=== PATIENT | male | born 1960 | race Two or more races ===

== ENCOUNTER → 2023-10-28 | Outpatient (CLI) | payer MEDICAID ==
[2023-10-28 07:39] LABS: Urine Bacteria None Seen /hpf (None Seen)
[2023-10-28 07:57] LABS: Basophils # (auto) 0.1 10 ^3/uL (0-0.2); Basophils % (auto) 0.6 % (0.0-2.0); Eosinophils # (auto) 0.3 10 ^3/uL (0-0.8); Eosinophils % (auto) 3.5 % (0.0-7.0); Hematocrit 48.5 % (41.0-53.0); Hemoglobin 16.7 g/dL (13.5-17.5); Lymphocytes # (auto) 1.2 10 ^3/uL (0.4-5.4); Lymphocytes % (auto) 15.1 % (10.0-50.0); Mean Corpuscular Hemoglobin 32.4 pg (28.0-32.0); Mean Corpuscular Hgb Conc. 34.4 g/dL (32.0-36.0); Mean Corpuscular Volume 94.1 fL (80.0-100.0); Monocytes # (auto) 0.6 10 ^3/uL (0-1.3); Monocytes % (auto) 7.3 % (0.0-12.0); Neutrophils # (auto) 5.9 10 ^3/uL (1.6-8.6); Neutrophils % (auto) 73.5 % (37.0-80.0); Red Blood Cells 5.16 10^6/uL (4.5-5.90); Red Cell Distribution Width 13.7 % (11.8-14.3); White Blood Cell 8.1 10^3/uL (4.4-10.8)
[2023-10-28 08:16] LABS: Urine Blood 1+ /uL (Negative); Urine Clarity Clear (Clear); Urine Color Yellow (Yellow); Urine Mucus FEW (None Seen); Urine Protein, UAD TRACE (Negative); Urine Specific Gravity 1.022 (1.001-1.035); Urine Urobilinogen Normal (Negative); Urine WBC 1 /hpf (0 - 3); Urine pH 5.5 (5.0-9.0)
[2023-10-28 08:21] LABS: Alanine Aminotransferase 29 U/L (7-40); Albumin 4.4 g/dL (3.2-4.8); Alkaline Phosphatase 78 U/L (46-116); Anion Gap 9 (5-15); Aspartate Aminotransferase 27 U/L (13-40); BUN/Creatinine Ratio 13.3 (10.0-20.0); Bilirubin, Total 2.6 mg/dL (0.2-1.0); Blood Urea Nitrogen 11 mg/dL (9-23); Calcium 9.5 mg/dL (8.7-10.4); Carbon Dioxide 24 mmol/L (20-30); Chloride 105 mmol/L (98-107); Cholesterol 123 mg/dL (< 200); Glucose 107 mg/dL (74-106); HDL Cholesterol 65 mg/dL (40-59); LDL Cholesterol 51 mg/dL (< 100); Potassium 3.7 mmol/L (3.5-5.1); Sodium 138 mmol/L (136-145); Total Protein 6.9 g/dL (5.7-8.2); Triglycerides 47 mg/dL (< 150)
[2023-10-29 07:07] LABS: RPR Non Reactive (Non Reactive)
[2023-10-29 08:06] LABS: PSA Free 0.35 ng/mL; Prostate Specific Antigen 2.1 ng/mL (0.0-4.0)
[2023-10-29 09:23] LABS: Hepatitis B Surface Antigen Negative (Negative)
[2023-10-29 09:43] LABS: Hepatitis A Ab IgM Negative
[2023-10-29 09:44] LABS: Hepatitis B Core IgM Negative
[2023-10-29 09:45] LABS: Hepatitis C Antibody Negative (Negative)
[2023-10-29 13:08] LABS: Chlamydia Trachomatis, NAA Negative (Negative); Neisseria gonorrhoeae, NAA Negative (Negative)
== END | disposition home or self-care (01) ==
LOC: LAB 07:20
DX: Z12.11 Encounter for screening for malignant neoplasm of colon (principal); Z12.5 Encounter for screening for malignant neoplasm of prostate; Z11.3 Encounter for screening for infections with a predominantly sexual mode of transmission; Z00.01 Encounter for general adult medical examination with abnormal findings
CPT/HCPCS: 36415; 80053; 80061; 80074; 81001; 82274; 82306; 83036; 84154; 84443; 85025; 86592

== ENCOUNTER → 2024-02-25 | Outpatient (CLI) | payer MEDICAID ==
[2024-02-25 07:36] LABS: Urine Bacteria None Seen /hpf (None Seen)
[2024-02-25 08:56] LABS: Urine Blood Negative /uL (Negative); Urine Clarity Clear (Clear); Urine Color Light-Yellow (Yellow); Urine Protein, UAD Negative (Negative); Urine Urobilinogen Normal (Negative); Urine WBC 1 /hpf (0 - 3); Urine pH 5.5 (5.0-9.0)
[2024-02-25 09:06] LABS: INR 1.04 (0.9-1.15); Partial Thromboplastin Time 28.6 SEC (24.5-34.5)
[2024-02-25 09:07] LABS: Basophils # (auto) 0 10 ^3/uL (0-0.2); Basophils % (auto) 0.6 % (0.0-2.0); Eosinophils # (auto) 0.4 10 ^3/uL (0-0.8); Eosinophils % (auto) 5.9 % (0.0-7.0); Hematocrit 45.9 % (41.0-53.0); Hemoglobin 15.4 g/dL (13.5-17.5); Lymphocytes # (auto) 1.3 10 ^3/uL (0.4-5.4); Lymphocytes % (auto) 19.5 % (10.0-50.0); Mean Corpuscular Hemoglobin 31.1 pg (28.0-32.0); Mean Corpuscular Hgb Conc. 33.5 g/dL (32.0-36.0); Monocytes # (auto) 0.4 10 ^3/uL (0-1.3); Monocytes % (auto) 6.8 % (0.0-12.0); Neutrophils # (auto) 4.5 10 ^3/uL (1.6-8.6); Neutrophils % (auto) 67.2 % (37.0-80.0); Nucleated Red Blood Cells % 0.1 %; Platelet Count (auto) 90 10^3/uL (140-450); Red Blood Cells 4.94 10^6/uL (4.5-5.90); Red Cell Distribution Width 13.6 % (11.8-14.3); White Blood Cell 6.7 10^3/uL (4.4-10.8)
[2024-02-25 09:21] LABS: Alanine Aminotransferase 14 U/L (7-40); Alkaline Phosphatase 88 U/L (46-116); Anion Gap 6 (5-15); BUN/Creatinine Ratio 13.3 (10.0-20.0); Blood Urea Nitrogen 11 mg/dL (9-23); Carbon Dioxide 29 mmol/L (20-31); Chloride 108 mmol/L (98-107); Glucose 103 mg/dL (74-106); LDL Cholesterol 65 mg/dL (< 100); Potassium 4.4 mmol/L (3.5-5.1); Sodium 143 mmol/L (136-145); Triglycerides 48 mg/dL (< 150)
[2024-02-25 09:22] LABS: Albumin 4.3 g/dL (3.2-4.8); Aspartate Aminotransferase 12 U/L (13-40); Cholesterol 119 mg/dL (< 200)
[2024-02-25 09:23] LABS: Bilirubin, Total 0.9 mg/dL (0.2-1.0); HDL Cholesterol 49 mg/dL (40-59)
== END | disposition home or self-care (01) ==
LOC: LAB 07:12
DX: I10 Essential (primary) hypertension (principal); F10.11 Alcohol abuse, in remission; D69.9 Hemorrhagic condition, unspecified
CPT/HCPCS: 36415; 80053; 80061; 81001; 82306; 82728; 82977; 83036; 84443; 85025; 85610; 85730

== ENCOUNTER → 2024-03-29 | Outpatient (CLI) | payer MEDICAID ==
[2024-03-29 09:10] LABS: Basophils # (auto) 0.1 10 ^3/uL (0-0.2); Basophils % (auto) 1.2 % (0.0-2.0); Eosinophils # (auto) 0.3 10 ^3/uL (0-0.8); Eosinophils % (auto) 4.6 % (0.0-7.0); Hematocrit 44.7 % (41.0-53.0); Lymphocytes # (auto) 1.1 10 ^3/uL (0.4-5.4); Mean Corpuscular Hemoglobin 30.9 pg (28.0-32.0); Mean Corpuscular Hgb Conc. 33.5 g/dL (32.0-36.0); Mean Corpuscular Volume 92.2 fL (80.0-100.0); Monocytes # (auto) 0.4 10 ^3/uL (0-1.3); Monocytes % (auto) 6.4 % (0.0-12.0); Neutrophils # (auto) 4.7 10 ^3/uL (1.6-8.6); Neutrophils % (auto) 70.8 % (37.0-80.0); Nucleated Red Blood Cells % 0.1 %; Platelet Count (auto) 79 10^3/uL (140-450); Red Blood Cells 4.84 10^6/uL (4.5-5.90); Red Cell Distribution Width 13.5 % (11.8-14.3); White Blood Cell 6.6 10^3/uL (4.4-10.8)
[2024-03-29 10:28] LABS: Erythrocyte Sedimentation Rate 4 mm/hr (0-20)
== END | disposition home or self-care (01) ==
LOC: LAB 08:36
DX: I10 Essential (primary) hypertension (principal)
CPT/HCPCS: 36415; 82607; 85025; 85652; 86038; 86141

== ENCOUNTER → 2024-06-06 | Outpatient (CLI) | payer MEDICAID ==
--- NOTE | 2024-06-07 16:25 | DVHSR ---
APPROVED REPORT EXAM: Two-dimensional and M-mode echocardiogram with Doppler and color Doppler. DIMENSIONS LVDd4.3 (3.8-5.7cm)LA (2D)3.8 (1.9-4.0cm)Aortic Root3.2 (2.0-3.7cm) LVDs3.1 (2.5-4.0cm)LA (MM) (1.9-4.0cm)Aortic Cusp Exc1.8 (1.5-2.0cm) EF (%) 56.4 (55-70%)Rt. Atrium3.3 (1.9-4.0cm)Asc. Aorta4.0 cm IVSd1.2 (0.7-1.1cm)RV (D)1.9 (1.8-2.4cm) PWd1.2 (0.7-1.1cm) Mitral Valve MitralMitral Stenosis E wave0.57m/sMV Mean GR.mmHg A wave1.00m/sMV Peak GR.18mmHg E/A ratio0.62D MVAcm2 DECEL [id number] 1/2 Timems Aortic Valve Aortic ValveAortic Stenosis V10.89m/Carol Mean GR.5mmHg V21.60m/Carol Peak GR.10mmHg AI P 1/2 [id number] Pulmonic Valve V20.52m/s Tricuspid Valve TR Velocity2.65m/s [id number] LEFT VENTRICLE The Ejection Fraction is >55%. ATRIA The left atrial size is normal. The right atrium size is normal. MITRAL VALVE The mitral valve is normal in structure and function. Mitral regurgitation is trace to mild. PULMONIC VALVE The pulmonic valve is not well visualized. TRICUSPID VALVE The tricuspid valve is grossly normal. There is mild tricuspid regurgitation. AORTIC VALVE The aortic valve opens well. There is mild aortic regurgitation. GREAT VESSELS The aortic root is normal size. PERICARDIAL EFFUSION There is no pericardial effusion. Other Information Technically limited study due to body habitus. Conclusion MILD AI MILD TR MILD MR EF 55% LVH
== END | disposition home or self-care (01) ==
LOC: Rad HDHVI 07:55
PROVIDERS: ATTEND Internal Medicine Cardiovascular Disease
DX: I08.3 Combined rheumatic disorders of mitral, aortic and tricuspid valves (principal); I71.21 Aneurysm of the ascending aorta, without rupture
CPT/HCPCS: 93306

== ENCOUNTER → 2024-06-08 | Outpatient (CLI) | payer MEDICAID ==
[~2024-06-08] VITALS: Ht 162.6 cm; Wt 64.0 kg
--- NOTE | 2024-06-17 14:39 | DVHSR ---
APPROVED REPORT Exam: Nuclear Stress Test Indication: Screening for CAD Ht: 5 ft 4 in Wt: 141 lbs BSA: 1.69 m2 HR: 67 bpm BP: 117/79 mmHg BMI: 24.20 Rhythm: NSR Medical History Medical History: HTN, Hypercholesterolemia, Smoking Medications: Atorvastatin, Losartan, Vit B12 Allergies: No known drug allergies Stress Test Details Stress Test: Exercise stress testing was performed using a Torsten protocol. HR Resting HR: 67 bpmMax Heart Rate (APMHR): 154.879997 bpm Max HR Achieved: 136 bpmTarget HR (85% APMHR): 130.785253 bpm % of APMHR: 88.31 Recovery HR: 82 bpm HR response to stress: Normal HR response to stress BP Resting BP: 117/79 mmHg Max BP: 153/82 mmHg Recovery BP: 140/85 mmHg BP response to stress: Normal blood pressure response to stress. ECG Resting ECG: Sinus Rhythm Stress ECG: Sinus Tachycardia Arrhythmia: PVCs Recovery ECG: Sinus Rhythm Clinical Reason for Termination: Target HR achieved Stress Symptoms: None Exercise duration: 8 min 15 sec Exercise capacity: 10.1 METs Stress ECG Conclusion ECG RESPONSE NON ISCHEMIC CARDIOLITE IMAGES NO PERFUSION ABNL LESS THAN 10% LIKELIHOOD FOR STRESS INDUCED ISCHEMIA EF >55% NM EXAM: Myocardial Perfusion REST/STRESS Imaging Protocol: Rest Tc-99m/Stress Tc-99m 1 day Resting Data Rest SPECT myocardial perfusion imaging was performed in supine position 30 minutes following the int ravenous injection of 10.91 mCi of Tc-99m Sestamibi. Time of rest injection: 09 Time of rest imagin Administration Route: IV Administration Site: Left AC Exercise Stress At peak stress, the patient was injected intravenously with 32 mCi of Tc-99m Sestamibi. Time of stress injection: 1017 Time of stress imagin Administration Route: IV Administration Site: Left AC Heart Rate at time of stress injection: 134 bpm. Patient continued to exercise for 1 minute(s). Gated Stress SPECT was performed 15 minutes after stress injection. The images were gated to evaluate regional wall motion and calculate left ventricular ejection fracti on. Comments Cardiolite injection at 7 minutes, 13 seconds into test. Study Data Post stress, the left ventricular ejection was 57%.. Nuclear Conclusion ECG RESPONSE NON ISCHEMIC CARDIOLITE IMAGES NO PERFUSION ABNL LESS THAN 10% LIKELIHOOD FOR STRESS INDUCED ISCHEMIA EF >55%
== END | disposition home or self-care (01) ==
LOC: Rad HDHVI 08:54
PROVIDERS: ATTEND Internal Medicine Cardiovascular Disease
DX: I49.3 Ventricular premature depolarization (principal); I10 Essential (primary) hypertension; E78.00 Pure hypercholesterolemia, unspecified; F17.210 Nicotine dependence, cigarettes, uncomplicated; R00.0 Tachycardia, unspecified
CPT/HCPCS: 78452; 93017; A9500; 96374

== ENCOUNTER → 2024-06-10 | Outpatient (CLI) | payer MEDICAID ==
[~2024-06-10] MED LIST: IOHEXOL 350 MG/ML 100ML IJ ONE
[2024-06-10 08:40] VITALS: BP 118/80; PULSE 88; RESP 16; O2SAT 98
[2024-06-10 08:54] VITALS: BP 124/73; PULSE 76; RESP 16; O2SAT 98
--- NOTE | 2024-06-10 10:50 | DVH ---
History: ASCENDING ANEURYSM Comparison: None TECHNIQUE: Volumetric data acquisition of chest was obtained following intravenous administration of 100 ml omni 350 contrast without any reported adverse effects. Arterial phase imaging was performed. Axial images were obtained and additional sagittal and coronal images were reformatted. 3 D/MIP images were performed and reviewed for reporting. Radiation dose Information: CT Dose: CTDI volume is 5.74 mGy. Dose-length product is 218.01 mGy*cm Findings: Vascular: Aortic measurements: Sinus of valsalva 36mm, ST junction 26mm, ascending aorta 41mm, descending aor ta 24mm, aortic hiatus 20mm. Ascending aorta is ectatic measuring up to 41 mm. No aortic dissection. Visualized supra-aortic izzy jesus are patent without a focal stenosis or aneurysm. Chest: Pulmonary Arteries: There are no filling defects within main pulmonary arteries. There is normal dim ensional of main PA. Lungs: Limited by motion at the lung bases. Bilateral pulmonary nodules largest in the right upper lo be measures up to 9 mm. Lymph Nodes: There is no significant intrathoracic or axillary lymphadenopathy on CT size criteria. Lower Neck: Visualized portions of the thyroid gland are unremarkable. Mediastinum: Heart size is normal. There is no pericardial effusion. Musculoskeletal: No aggressive focal bony lesions, acute fractures or dislocation. Chest wall: Unremarkable IMPRESSION: 1. Ascending aortic aneurysm measuring up to 41 mm. No aortic dissection. 2. Evaluation of the lungs limited due to motion artifact. Bilateral pulmonary nodules measuring up to 9 mm in the right upper lobe. Correlate with prior imaging if available. If unavailable recommend follow-up chest CT in [address] scans at this medical facility are performed using dose modulation techniques as appropriat e to a performed exam including the following: Automated exposure control was utilized; Adjustment of the MA And/or KV according to patient size; And use of iterative reconstruction technique. HS:Y
== END | disposition home or self-care (01) ==
LOC: Rad HDHVI 08:18
PROVIDERS: ATTEND Internal Medicine Cardiovascular Disease
DX: I71.21 Aneurysm of the ascending aorta, without rupture (principal); R91.8 Other nonspecific abnormal finding of lung field
CPT/HCPCS: 71275; G0463; Q9967

== ENCOUNTER → 2024-06-13 | Outpatient (CLI) | payer MEDICAID | END | disposition home or self-care (01) | LOC: Rad HDHVI 08:07 | PROVIDERS: ATTEND Internal Medicine Cardiovascular Disease | DX: I10 Essential (primary) hypertension (principal) | CPT/HCPCS: 93880 ==

== ENCOUNTER → 2024-06-21 | Outpatient (CLI) | payer MEDICAID ==
[2024-06-21 09:35] LABS: Basophils # (auto) 0 10 ^3/uL (0-0.2); Basophils % (auto) 0.5 % (0.0-2.0); Eosinophils # (auto) 0.5 10 ^3/uL (0-0.8); Eosinophils % (auto) 6.5 % (0.0-7.0); Hematocrit 46.5 % (41.0-53.0); Hemoglobin 15.3 g/dL (13.5-17.5); Lymphocytes # (auto) 1.2 10 ^3/uL (0.4-5.4); Lymphocytes % (auto) 16.8 % (10.0-50.0); Mean Corpuscular Hemoglobin 29.8 pg (28.0-32.0); Mean Corpuscular Volume 90.4 fL (80.0-100.0); Monocytes # (auto) 0.4 10 ^3/uL (0-1.3); Monocytes % (auto) 5.2 % (0.0-12.0); Neutrophils # (auto) 5.2 10 ^3/uL (1.6-8.6); Nucleated Red Blood Cells % 0.1 %; Platelet Count (auto) 72 10^3/uL (140-450); Red Blood Cells 5.14 10^6/uL (4.5-5.90); Red Cell Distribution Width 13.7 % (11.8-14.3); White Blood Cell 7.3 10^3/uL (4.4-10.8)
[2024-06-21 10:05] LABS: Alanine Aminotransferase 16 U/L (7-40); Albumin 4.5 g/dL (3.2-4.8); Alkaline Phosphatase 81 U/L (46-116); Anion Gap 7 (5-15); Aspartate Aminotransferase 21 U/L (13-40); BUN/Creatinine Ratio 13.8 (10.0-20.0); Blood Urea Nitrogen 12 mg/dL (9-23); Calcium 9.5 mg/dL (8.7-10.4); Carbon Dioxide 27 mmol/L (20-31); Chloride 105 mmol/L (98-107); Cholesterol 119 mg/dL (< 200); Glucose 97 mg/dL (74-106); HDL Cholesterol 42 mg/dL (40-59); LDL Cholesterol 67 mg/dL (< 100); Potassium 4.1 mmol/L (3.5-5.1); Sodium 139 mmol/L (136-145); Triglycerides 68 mg/dL (< 150)
[2024-06-22 08:07] LABS: AFP Serum Tumor Marker 7.6 ng/mL (0.0-8.4)
== END | disposition home or self-care (01) ==
LOC: LAB 08:59
PROVIDERS: ATTEND Nurse Practitioner Family
DX: Z11.3 Encounter for screening for infections with a predominantly sexual mode of transmission (principal); Z12.11 Encounter for screening for malignant neoplasm of colon; I10 Essential (primary) hypertension; E78.5 Hyperlipidemia, unspecified; R79.89 Other specified abnormal findings of blood chemistry; D69.0 Allergic purpura
CPT/HCPCS: 36415; 80053; 80061; 82105; 82306; 82607; 83036; 84443; 85025; 86703; 86704; 86706; 86708; 86803; 87340

== ENCOUNTER → 2024-11-25 | Outpatient (CLI) | payer MEDICAID ==
[2024-11-25 09:48] LABS: Hematocrit 45.9 % (41.0-53.0); Hemoglobin 15.6 g/dL (13.5-17.5); Mean Corpuscular Hemoglobin 30.5 pg (28.0-32.0); Mean Corpuscular Volume 89.6 fL (80.0-100.0); Nucleated Red Blood Cells % 0.0 %
[2024-11-25 10:06] LABS: Urine Protein, UAD Negative (Negative)
[2024-11-25 10:14] LABS: Alanine Aminotransferase 12 U/L (7-40); Albumin 4.5 g/dL (3.2-4.8); Alkaline Phosphatase 72 U/L (46-116); Anion Gap 6 (5-15); BUN/Creatinine Ratio 13.1 (10.0-20.0); Blood Urea Nitrogen 11 mg/dL (9-23); Calcium 9.3 mg/dL (8.7-10.4); Carbon Dioxide 28 mmol/L (20-31); Chloride 105 mmol/L (98-107); Cholesterol 111 mg/dL (< 200); Glucose 93 mg/dL (74-106); HDL Cholesterol 42 mg/dL (40-59); Potassium 4.3 mmol/L (3.5-5.1); Sodium 139 mmol/L (136-145); Total Protein 6.8 g/dL (5.7-8.2); Triglycerides 50 mg/dL (< 150)
[2024-11-25 10:17] LABS: Bilirubin, Total 1.7 mg/dL (0.2-1.0)
[2024-11-25 10:32] LABS: Follicle Stimulating Hormone 5.75 IU/L (1.4-18.1)
[2024-11-25 11:55] LABS: Wright Stain Ready for Review
== END | disposition home or self-care (01) ==
LOC: LAB 09:26
PROVIDERS: ATTEND Student in an Organized Health Care Education/Training Program
DX: I10 Essential (primary) hypertension (principal); E78.2 Mixed hyperlipidemia; E55.9 Vitamin D deficiency, unspecified; N52.2 Drug-induced erectile dysfunction; R79.89 Other specified abnormal findings of blood chemistry; R73.03 Prediabetes; Z12.5 Encounter for screening for malignant neoplasm of prostate; Z12.11 Encounter for screening for malignant neoplasm of colon
CPT/HCPCS: 36415; 80053; 80061; 81001; 82274; 82306; 83001; 83002; 83036; 84402; 84403; 84436; 84443; 85025; 86376

== ENCOUNTER 2025-03-07 06:29 | Outpatient (CLI) | payer MEDICAID ==
[2025-03-07 07:26] LABS: Hematocrit 44.9 % (41.0-53.0); Hemoglobin 15.5 g/dL (13.5-17.5); Mean Corpuscular Hemoglobin 30.6 pg (28.0-32.0); Mean Corpuscular Volume 88.5 fL (80.0-100.0); Nucleated Red Blood Cells % 0.1 %
[2025-03-07 07:35] LABS: Alanine Aminotransferase 16 U/L (7-40); Albumin 4.2 g/dL (3.2-4.8); Alkaline Phosphatase 76 U/L (46-116); Anion Gap 8 (5-15); BUN/Creatinine Ratio 12.1 (10.0-20.0); Blood Urea Nitrogen 11 mg/dL (9-23); Calcium 9.5 mg/dL (8.7-10.4); Carbon Dioxide 29 mmol/L (20-31); Chloride 106 mmol/L (98-107); Cholesterol 129 mg/dL (< 200); Glucose 99 mg/dL (74-106); HDL Cholesterol 47 mg/dL (40-59); Potassium 4.2 mmol/L (3.5-5.1); Sodium 143 mmol/L (136-145); Total Protein 6.9 g/dL (5.7-8.2); Triglycerides 62 mg/dL (< 150)
[2025-03-07 07:37] LABS: Bilirubin, Total 1.3 mg/dL (0.2-1.0)
[2025-03-07 07:47] LABS: Urine Protein, UAD Negative (Negative)
[2025-03-07 09:13] LABS: Giant Platelets Few
[2025-03-07 11:56] LABS: Wright Stain Ready for Review
[2025-03-08 13:59] LABS: Hepatitis B Surface Antigen Negative (Negative)
[2025-03-08 14:19] LABS: Hepatitis C Antibody Negative (Negative)
== END 2025-03-07 17:00 | disposition home or self-care (01) ==
LOC: LAB 06:29
PROVIDERS: ATTEND Nurse Practitioner Family
DX: I10 Essential (primary) hypertension (principal); E78.5 Hyperlipidemia, unspecified; D69.6 Thrombocytopenia, unspecified
CPT/HCPCS: 36415; 80053; 80061; 80074; 81001; 82306; 85025